=== PATIENT | female | born 1995 | race Caucasian/White ===

== ENCOUNTER 2016-09-18 17:40 | Emergency (ER) | payer SELFPAY ==
[~2016-09-18] VITALS: Ht 177.8 cm; Wt 95.0 kg
[2016-09-18 18:00] VITALS: BP 141/81
== END 2016-09-18 18:45 | disposition left against medical advice (07) ==
LOC: EME 17:40
DX: S09.90XA Unspecified injury of head, initial encounter (principal); V80.010A Animal-rider injured by fall from or being thrown from horse in noncollision accident, initial encounter; Y93.52 Activity, horseback riding